=== PATIENT | male | born 1985 | race Caucasian/White ===

== ENCOUNTER 2017-04-08 05:18 | Day surgery (SDC) | payer OTHER ==
[~2017-04-08] VITALS: Ht 172.7 cm; Wt 69.4 kg
--- NOTE | ~2017-04-08 | EKG ---
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: CHRISTY : 1985 Requested By: Gregorio Meraz Order Number: [id number] MD: Jose Enrique Dunlap Measurements Intervals Sultana Rate: 74 P: 30 NM: 127 QRS: 5 QRSD: 89 T: 0 QT: 387 QTc: 430 Interpretive Statements Sinus rhythm LVH by voltage Borderline T abnormalities, inferior leads ST elev, probable normal early repol pattern Baseline wander in lead(s) V1,V3 No previous ECG available for comparison Electronically Signed On 04-08-2017 8:01:21 CDT by Jose Enrique Dunlap [email or web address] <ELECTRONICALLY SIGNED> By: Jose Enrique Dunlap MD, [facility] 04/08/17 0801 [id number] Jose Enrique Dunlap MD, [facility] /EPI
--- NOTE | ~2017-04-08 | O ---
[facility] [place] [address] OPERATIVE REPORT Name: BRITTANY PATEL Room #: 150-1 [facility] M.R.#: [id number] Admission: 04/08/17 Attend Phys: Gregorio Meraz MD, F Discharge: Date of : 89 Report #: [id number] THIS REPORT FOR: //name// CC: Gregorio Alves DATE OF SERVICE: 04/08/2017 PREOPERATIVE DIAGNOSES: Protein calorie malnutrition and sepsis requiring removal of Port-A-Cath. POSTOPERATIVE DIAGNOSES: Protein calorie malnutrition and sepsis requiring removal of Port-A-Cath. OPERATIVE PROCEDURE: Removal of right anterior chest wall Port-A-Cath. SURGEON: Gregorio Meraz M.D. 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 This requires removal on emergency medical basis according to Dr. Alves at [facility]. OPERATIVE PROCEDURE: The patient was brought to the operating room and had satisfactory induction of slight moderate anesthetic care. He had some sedation. Sterile prep and paint with DuraPrep was performed in the right anterior chest wall. 1% plain Xylocaine mixed with 1:1 sodium bicarbonate was utilized for local infiltration. The pocket 4 cm transverse incision was opened. The catheter was controlled and removed from its sheath. The sheath was then approximated and closed with a [id number] 3-0 Vicryl suture. The chamber was then removed, which had been sutured to the pectoralis fascia was then excised. The entire Port-A-Cath was sent for gross inspection only. Copious irrigation was performed, hemostasis was achieved with electrocautery. Annette solution was placed into the pocket, which was down to bare pectoralis muscle. The deep subcutaneous tissue was approximated with running 3-0 Vicryl. The more superficial subcutaneous tissue approximated with running 3-0 Vicryl. Skin margins were approximated with subcuticular 4-0 Monocryl. Estimated blood loss 5 mL. The patient returned to recovery room in stable and satisfactory condition and will be transferred back to [facility]-term acute care facility when stable. By: [id number] Gregorio Meraz MD, FACS /nt
--- NOTE | ~2017-04-08 | H ---
[facility] [place] [address] HISTORY AND PHYSICAL Name: BRITTANY PATEL Room #: 150-1 [facility] M.R.#: [id number] Admission: 04/08/17 Attend Phys: Gregorio Meraz MD, F Discharge: Date of : 89 Report #: [id number] THIS REPORT FOR: //name// CC: Gregorio Alves DATE OF SERVICE: 04/08/2017 DATE OF OPERATION: 04/08/2017. HISTORY OF PRESENT ILLNESS: This 31-year-old male who is a patient at [facility] since he had a history of electrocution on 07/22/2015. He has been unresponsive since that time. Has significant flexor contractions and a vegetative state. He has a diverting colostomy, a gastrostomy and tracheostomy tube and has decubiti of the posterior ischial tuberosities. He has a Port-A-Cath in the right anterior chest wall, which has not been utilized for some time and requires removal in order to not be a continuing source for sepsis. PAST MEDICAL HISTORY: Unable to be obtained. ALLERGIES: None listed. MEDICATIONS: Multiple including vancomycin and Diflucan and suspensions per feeding tube, multiple medications for seizure disorder per the PEG feeding tube. SOCIAL HISTORY: Unobtainable. Parents lives in [place]. FAMILY HISTORY: Not obtainable. See old history and physical. REVIEW OF SYSTEMS: Not obtainable. PHYSICAL EXAMINATION: GENERAL: The patient in vegetative state, resting comfortably in bed. VITAL SIGNS: Stable. He is afebrile. HEENT: Mouth with wide open. Eyes closed, responds only to painful stimuli. CHEST: There is a Port-A-Cath in the right anterior chest wall. Lungs are clear bilaterally. CARDIOVASCULAR: Regular rate and rhythm. ABDOMEN: PEG and colostomy with satisfactory function. NEUROLOGICAL: Marked contractures of all extremities, spasticity is present. DIAGNOSTIC IMPRESSION: Sepsis and protein-calorie malnutrition secondary to [facility] [address] [place] [address] HISTORY AND PHYSICAL Name: BRITTANY PATEL Room #: 150-1 [facility] M.R.#: [id number] Admission: 04/08/17 Attend Phys: Gregorio Meraz MD, F Discharge: Date of : 89 Report #: [id number] severe electrocution injury with need for removal of Port-A-Cath, which is no longer utilized. By: [id number] Gregorio Meraz MD, FACS /nt
--- NOTE | ~2017-04-08 | S ---
[facility] [address] [place] [address] SURGICAL PATH RPT PROCEDURE Name: BRITTANY PATEL Room #: DEP [facility] M.R.#: [id number] Admission: 04/08/17 Date of : 89 Discharge: 04/08/17 Report #: [id number] Path Case #: [id number] PATHOLOGY REPORT DRAFT COLLECTION DATE: 04/08/2017 RECEIVED DATE: 04/08/2017 SPECIMEN(S) RECEIVED: Suzette
[~2017-04-08 05:18] MED LIST: ACETAMINOP160 MG/12 PER TUBE; ACETYLCYST200 MG/1 M INH; BACLOFEN 10MG T10 MG PER TUBE; CALCITONIN-SAL3.7 ML NASAL; COREG25 MG PER TUBE; FERROUS SU300 MG/5 M PER TUBE; FLEXERIL PER TUBE; HEPARIN SO5000 UNIT2 SUBQ; HYDRALAZINE20 MG/M1 IV PUSH; IPRATROPIU0.2 MG/1 M INH; KEPPRA 500 MG500 M1 PER TUBE; LOPRESSOR100 M1 PER TUBE; MAGOX 400400 MG PER TUBE; MICONAZOLE5 GM TOP; MULTIVITAMINS PER TUBE; NORVASC 5 MG TAB5 MG PER TUBE; ONDANSETRON HCL4 M2 PER TUBE; PEPCID20 MG PER TUBE; PHENYTOIN125 MG/52 PER TUBE; PROTEIN SUPPLEMENT PER TUBE; REGLAN 10 MG TA10 MG PER TUBE; ROBITUSSIN100 MG/53 PER TUBE; SEROQUEL 25 MG25 M1 PER TUBE; STOOL SOFTENER100 MG PER TUBE; TIZANIDINE HCL4 MG PER TUBE; TWOCAL HN LIQU237 ML PER TUBE; VALPROIC A500 MG/10 PER TUBE; ZYVOX600 MG/300 IVPB
[2017-04-08 06:35] VITALS: BP 91/52
[2017-04-08] MEDS ORDERED: AMIKACIN (500 MG/2 M IVPB (07:59)
[2017-04-08] MEDS ORDERED: VANCO 1 GR1 GM/250 M IVPB (08:00)
[2017-04-08] MEDS ORDERED: EUCERIN CREME57 GM TOP (08:08)
[2017-04-08] MEDS ORDERED: PERIDEX15 ML MUCOUS MEM (08:09)
== END 2017-04-08 11:29 ==
LOC: OR 05:18 → TBA 05:19 → OR 10:51
DX: Z45.2 Encounter for adjustment and management of vascular access device (principal); E46 Unspecified protein-calorie malnutrition; A41.89 Other specified sepsis; I10 Essential (primary) hypertension; Z93.1 Gastrostomy status; Z93.3 Colostomy status; Z93.0 Tracheostomy status
CPT/HCPCS: 50010; 50101; 50386; 50403; 52287; 54118; 56524; 56526; 62110; 62850; 70005

== ENCOUNTER 2017-04-09 23:17 | Inpatient (IN) | payer OTHER ==
[~2017-04-09] VITALS: Ht 165.1 cm; Wt 65.7 kg
--- NOTE | ~2017-04-09 | HC ---
[facility] [place] [address] CONSULTATION Name: BRITTANY PATEL Room #: 452-P ADM IN M.R.#: [id number] Admission: 04/10/17 Attend Phys: Kyler Tran MD Discharge: Date of : 89 Report #: [id number] THIS REPORT FOR: //name// CC: Kyler LION PCP DATE OF SERVICE: 04/10/2017 REASON FOR CONSULTATION: I was asked to evaluate concerning fever. 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 He has had persistent fevers there. He comes in on vancomycin and amikacin. Complications have included bilateral ischial decubiti. These have improved with wound care there. He has had recurring fevers. Has multidrug resistant organisms identified from his secretions. Remains encephalopathic. He is contractured, has tracheostomy, remains off the ventilator, has a PEG tube, colostomy, indwelling Lake catheter. He had a Port-A-Cath in place and that was removed [address] Gregorio Meraz. There were no intraoperative complications. He was dismissed only to return with higher fever, tachycardia and hypoxia. No other issues identified. He has had recurring Staphylococcus bacteremia. He has had enterobacter and pseudomonas in his respiratory tract along with recurring urinary tract infections. REVIEW OF SYSTEMS: Noted above with no additions. He does have a left IJ catheter in place. ALLERGIES: None known. MEDICATIONS: As noted on his MAR including vancomycin and amikacin. PAST MEDICAL HISTORY, FAMILY HISTORY, AND SOCIAL HISTORY: Unchanged from his history and physical, which was reviewed in detail. PHYSICAL EXAMINATION: VITAL SIGNS: Temperature 101.2, hemodynamically stable. GENERAL: Eyes were open, but he was not responsive. He had tremors with any stimulation. He had upper extremity contractures. His right leg was contractured in flexion and his left lower extremity was contractured in extension. Right chest Port-A-Cath site incision was unremarkable. There was some surrounding ecchymosis. Tracheostomy had a large amount of thick yellowish orange tracheal secretions. Left IJ catheter was unremarkable. LUNGS: Coarse bilaterally with no consolidation. HEART: Regular without murmur. ABDOMEN: PEG site unremarkable, colostomy unremarkable, indwelling Lake [facility] [address] [place] [address] CONSULTATION Name: BRITTANY PATEL Room #: 452-P [facility] IN .R.#: [id number] Admission: 04/10/17 Attend Phys: Kyler Tran MD Discharge: Date of : 89 Report #: [id number] catheter unremarkable. EXTERNAL GENITALIA: Otherwise unremarkable. His pelvic wounds appeared stable. No purulence or surrounding erythema. LABORATORY STUDIES: Sodium 136, potassium 4.2, bicarbonate 29, creatinine 0.6. Hemoglobin 11.1, white count 10.3, platelet count 247,000. Urinalysis, moderate wbc's, many rbc's, few bacteria, yeast. Blood and urine cultures are pending. Stool for C. difficile pending. IMPRESSION: Recurring fever in the setting of anoxic encephalopathy. Question whether some of this may be central in nature. It is noted that his white count is normal. He surely is colonized with multiple resistant organisms. Chest x-ray does show perihilar and basilar infiltrates. How much of this is new is not clear. PLAN: Would recommend continuing IV antibiotic therapy pending cultures of blood, urine and sputum. We will reevaluate following these cultures. <ELECTRONICALLY SIGNED> By: Garry Dawn MD 04/10/17 1857 [id number] Garry Dawn MD /nt
[~2017-04-09 23:17] MED LIST changes: +AMIKACIN (500 MG/2 M IVPB; +EUCERIN CREME57 GM TOP; +PERIDEX15 ML MUCOUS MEM; +VANCO 1 GR1 GM/250 M IVPB
[2017-04-09 23:22] VITALS: BP 129/74
[2017-04-10] VITALS (7 sets, daily range): BP systolic 87–143; BP diastolic 55–87
[2017-04-10 00:40] LABS: URINE BILIRUBIN NEGATIVE (Negative); URINE BLOOD 3+ (Negative); URINE COLOR YELLOW; URINE GLUCOSE-RANDOM* NEGATIVE (Negative); URINE KETONES NEGATIVE (Negative); URINE LEUKOCYTES-REFLEX 3+ (Negative); URINE PROTEIN (DIPSTICK) TRACE (Negative); URINE UROBILINOGEN 0.2 E.U./dl (0.2-1.0)
[2017-04-10 01:00] LABS: CASTS None Seen /LPF (None Seen); SQUAMOUS None Seen /LPF (0-3)
[2017-04-10 01:01] LABS: URINE RBC >20 Many /HPF (0-2); YEAST-REFLEX Present (None Seen)
[2017-04-10 01:02] LABS: AMORPHOUS PHOSPHATES Moderate /LPF (None Seen)
[2017-04-10 02:59] LABS: ABSOLUTE NEUTROPHILS 6.7 thou/uL (1.4-8.2); BASOPHILS 0.4 % (0.0-2.0); EOSINOPHILS 2.6 % (0.0-3.0); HEMATOCRIT 32.3 % (42.0-52.0); HEMOGLOBIN 11.1 gm/dL (14.0-18.0); MCH 28.9 pg (26.0-34.0); MCHC 34.2 g/dL (28.0-37.0); MCV 84.5 fL (80.0-100.0); MONOCYTES 9.2 % (1.0-8.0); PLATELET COUNT 247 thou/uL (150-400); POLYS 64.8 % (36.0-66.0); RBC 3.83 mil/uL (4.50-6.00); WBC 10.3 thou/uL (4.0-11.0)
[2017-04-10 03:02] LABS: MANUAL DIFF NO
[2017-04-10 03:07] LABS: CALCIUM 9.2 mg/dL (8.5-10.1); CREATININE 0.6 mg/dL (0.7-1.3); POTASSIUM 4.2 mmol/L (3.5-5.1)
[2017-04-10 13:50] LABS: CALCIUM 9.4 mg/dL (8.5-10.1); CREATININE 0.6 mg/dL (0.7-1.3); POTASSIUM 4.5 mmol/L (3.5-5.1)
[2017-04-11 03:07] VITALS: BP 116/84
[2017-04-11 06:18] LABS: ABSOLUTE NEUTROPHILS 4.8 thou/uL (1.4-8.2); BASOPHILS 0.4 % (0.0-2.0); EOSINOPHILS 5.2 % (0.0-3.0); HEMATOCRIT 29.5 % (42.0-52.0); LYMPHOCYTES 19.6 % (24.0-44.0); MCH 29.1 pg (26.0-34.0); MCHC 33.9 g/dL (28.0-37.0); MCV 85.7 fL (80.0-100.0); MONOCYTES 9.4 % (1.0-8.0); PLATELET COUNT 200 thou/uL (150-400); POLYS 65.4 % (36.0-66.0); RBC 3.44 mil/uL (4.50-6.00); RDW 15.6 % (10.5-14.5); WBC 7.3 thou/uL (4.0-11.0)
[2017-04-11 06:27] LABS: MANUAL DIFF NO
[2017-04-11 06:41] LABS: ALBUMIN 2.3 g/dL (3.4-5.0); CREATININE 0.5 mg/dL (0.7-1.3); POTASSIUM 3.7 mmol/L (3.5-5.1); TOTAL BILIRUBIN 0.3 mg/dL (<0.1-1.0); TOTAL PROTEIN 7.2 g/dL (6.4-8.2)
[2017-04-11 08:41] VITALS: BP 96/65
[2017-04-11 12:27] VITALS: BP 102/64
[2017-04-11 16:50] VITALS: BP 90/87
[2017-04-11 20:00] VITALS: BP 106/70
[2017-04-12 04:07] VITALS: BP 110/67
[2017-04-12 04:18] LABS: ABSOLUTE NEUTROPHILS 5.8 thou/uL (1.4-8.2); BASOPHILS 0.7 % (0.0-2.0); HEMATOCRIT 31.8 % (42.0-52.0); HEMOGLOBIN 10.8 gm/dL (14.0-18.0); LYMPHOCYTES 21.1 % (24.0-44.0); MCH 29.3 pg (26.0-34.0); MCV 86.3 fL (80.0-100.0); POLYS 65.2 % (36.0-66.0); RBC 3.69 mil/uL (4.50-6.00); RDW 15.8 % (10.5-14.5); WBC 8.9 thou/uL (4.0-11.0)
[2017-04-12 04:27] LABS: PLATELET COUNT 290 thou/uL (150-400)
[2017-04-12 04:28] LABS: CALCIUM 8.8 mg/dL (8.5-10.1); CREATININE 0.5 mg/dL (0.7-1.3); MANUAL DIFF NO; POTASSIUM 4.1 mmol/L (3.5-5.1)
[2017-04-12 04:58] LABS: LARGE PLATELETS RARE
[2017-04-12 07:32] VITALS: BP 93/63
[2017-04-12 11:35] VITALS: BP 102/71
[2017-04-12 16:38] VITALS: BP 112/72
== END 2017-04-12 18:35 | DRG 314 ==
LOC: ER 23:17 → 4W 04-10 03:43 → EROBS 04-10 03:43 → 4W 04-10 04:34
PROVIDERS: Emergency Medicine; Internal Medicine Endocrinology, Diabetes & Metabolism; Nurse Practitioner Family
PROC: B5181ZA Fluoroscopy of Superior Vena Cava using Low Osmolar Contrast, Guidance (ICD-10-PCS; principal; 2017-04-10)
PROC: 02HV33Z Insertion of Infusion Device into Superior Vena Cava, Percutaneous Approach (ICD-10-PCS; principal; 2017-04-10)
DX: T80.219A Unspecified infection due to central venous catheter, initial encounter (principal); A41.1 Sepsis due to other specified staphylococcus; J18.9 Pneumonia, unspecified organism; G93.1 Anoxic brain damage, not elsewhere classified; N39.0 Urinary tract infection, site not specified; J22 Unspecified acute lower respiratory infection; I11.0 Hypertensive heart disease with heart failure; I50.9 Heart failure, unspecified; G40.909 Epilepsy, unspecified, not intractable, without status epilepticus; M62.49 Contracture of muscle, multiple sites; B96.5 Pseudomonas (aeruginosa) (mallei) (pseudomallei) as the cause of diseases classified elsewhere; Z93.3 Colostomy status; Z93.0 Tracheostomy status; Z93.1 Gastrostomy status; Z86.74 Personal history of sudden cardiac arrest; Z79.899 Other long term (current) drug therapy; Y83.8 Other surgical procedures as the cause of abnormal reaction of the patient, or of later complication, without mention of misadventure at the time of the procedure; Y92.89 Other specified places as the place of occurrence of the external cause
CPT/HCPCS: 10045

== ENCOUNTER 2017-06-12 01:02 | Inpatient (IN) | payer OTHER ==
[~2017-06-12] VITALS: Ht 165.1 cm; Wt 70.8 kg
[2017-06-12] VITALS (7 sets, daily range): BP systolic 104–144; BP diastolic 70–100
--- NOTE | ~2017-06-12 | HC ---
[facility] [place] [address] CONSULTATION Name: BRITTANY PATEL Room #: 451-P ADM IN M.R.#: [id number] Admission: 06/12/17 Attend Phys: James Sherwood MD Discharge: Date of : 89 Report #: [id number] THIS REPORT FOR: //name// CC: James Sherwood NO PCP DATE OF SERVICE: 06/12/2017 REASON FOR CONSULTATION: Trach and possible pneumonia. IMPRESSION: 1. Pulmonary infiltrate, possible healthcare-associated pneumonia. 2. Sepsis. 3. Jckwx-jp-vvcczfz respiratory failure. 4. History of seizure disorder. 5. Encephalopathy. 6. Wounds. PLAN: 1. The usual trach care. 2. DVT and ulcer prophylaxis. 3. Continue home meds. 4. Aerosol therapy. 5. Antibiotics per ID. HISTORY OF PRESENT ILLNESS: A 31-year-old male transferred from [facility], was here in March with a Staph epidermidis bacteremia, see albicans in the urine and E. coli and Klebsiella pneumoniae in the sputum. He is now transferred from [place] secondary to hypertension. Was transfused and was given 2 liters of fluid in the Emergency Room and the antibiotics started and ID was consulted. The patient seen on floor. He opened eyes but did not follow for me. PAST SURGICAL HISTORY: Gastrostomy, Lake and tracheostomy. ALLERGIES: Per chart, no known. CURRENT MEDICATIONS: Include vancomycin, Seroquel 25 b.i.d., Keppra 1250 b.i.d., heparin 5000 b.i.d., Pepcid 20 mg daily, Humalog, phenytoin 150 q.8, tizanidine 8 mg q.8, Zosyn 4.5 q.6, baclofen and DuoNeb. PAST MEDICAL HISTORY: Not obtainable. FAMILY HISTORY: Not obtainable. SOCIAL HISTORY: Not obtainable. [facility] [address] [place] [address] CONSULTATION Name: BRITTANY PATEL Room #: 451-P [facility]#: [id number] Admission: 06/12/17 Attend Phys: James Sherwood MD Discharge: Date of : 89 Report #: [id number] REVIEW OF SYSTEMS: Not obtainable; however, per chart in June 2015 injury with cardiac arrest and severe hypoxic brain damage, tracheostomy, encephalopathy, quadriplegia with current contractures, hypertension, autonomic dysreflexia with fluctuating heart rate and blood pressure, seizure disorder, recurrent bacteremia, hypercalcemia due to immobility, bilateral trochanteric wound and groin rash. PHYSICAL EXAMINATION: VITAL SIGNS: Temperature 96.6, pulse 66, respirations 17 and BP 104/70. GENERAL: The patient did open eyes. LUNGS: Coarse bilaterally. Trach in place. HEART: Regular. ABDOMEN: Bowel sounds present. EXTREMITIES: Contractures. RADIOLOGICAL DATA: Chest x-ray showed bilateral infiltrates. KUB did not show any free air. LABORATORY DATA: Lactate 0.7. BUN 20, creatinine 0.6 and potassium 3.3. Alkaline phosphatase 184. Magnesium 15. SGPT 71. Albumin 2.1. White count 7.6, hemoglobin 11.6 and platelets 176. UA showed bacteria 1-9, wbc's 6-15 and leukocyte 3+. We will follow closely with you. By: 2238 Shreya Leos MD /nt
--- NOTE | ~2017-06-12 | HC ---
[facility] [place] [address] CONSULTATION Name: BRITTANY PATEL Room #: 451-P ADM IN M.R.#: [id number] Admission: 06/12/17 Attend Phys: James Sherwood MD Discharge: Date of : 89 Report #: [id number] THIS REPORT FOR: //name// CC: James LION PCP DATE OF SERVICE: 06/12/2017 CONSULTATION: Infectious diseases. The patient is an unfortunate 31-year-old gentleman who is admitted to the hospital from his residential because of hypotension in the documentation available to me. I cannot see what the blood pressure actually was. In the ER, it was measured at 113/74. The patient was admitted to the hospital because of possible sepsis. The patient was last at [facility], April 10 through April 12 of this year. At that time, the patient had coagulase negative staph and multiple blood cultures. This was treated by moving the Port-A-Cath and placing a PICC line. The patient was also noted to have resistant ruben in his sputum and urine and was discharged on vancomycin plus amikacin. He is chronically ill as noted below. It is not clear from the records available how long he continued on the antibiotics. He is on erythromycin chronically, presumably for gastric motility. In this setting, the patient returns to the hospital and infectious disease consultation was requested. The patient suffered an electrocution in 2014. Apparently he had a cardiac arrest , was left with severe anoxic encephalopathy. As a result, he is essentially in an agitative state with his eyes open. He requires chronic ventilator support. He has had a gastrostomy for feeding, colostomy for handling waste and skin care as well as a Lake catheter for urine and now has a PICC line for IV access. The patient in the past has had sepsis, urinary tract infection, severe decubitus ulcers and pneumonia associated with his neurologic condition. He has severe contractures. His eyes are open but he really does not respond to verbal nor aversive stimuli. ALLERGIES: The patient has no drug allergies. MEDICATION RECONCILIATION: Current medication orders include vancomycin, quetiapine, Levetiracetam, heparin, famotidine, insulin, phenytoin, tizanidine, Zosyn, glucagon, glucose, baclofen, magnesium, potassium, fentanyl, acetaminophen, DuoNeb, ondansetron. FAMILY HISTORY: Noncontributory. SOCIAL HISTORY: The patient is totally dependent in a residential since his [address] [address] CONSULTATION Name: BRITTANY PATEL Room #: 451-P [facility]#: [id number] Admission: 06/12/17 Attend Phys: James Sherwood MD Discharge: Date of : 89 Report #: [id number]. No previous history of tobacco, alcohol nor drug use. REVIEW OF SYSTEMS: Unavailable. PHYSICAL EXAMINATION: GENERAL: The patient appears in his usual baseline condition, unresponsive, eyes open, contractured, in no distress. VITAL SIGNS: Show maximum measured temperature 99.6, the minimum blood pressure here at the hospital is 113/74 and in fact he has become somewhat hypertensive at 144/93 on the most recent measurement. SKIN: Significant for no wounds that I found. I do not fully address the patient or examine on all surfaces because of his contractures and lack of help. I did note that the right hip had a scar deep decubitus, which is now completely reepithelialized. ENT: Shows contracted changes. The mouth is open. NECK: Stiff with contracture, T-tube connected to the tracheotomy, appears unremarkable. CARDIOVASCULAR: Heart sounds normal. CHEST: Breath sounds are diminished, but clear. ABDOMEN: Belly is soft, not tender. Gastrostomy tube unremarkable. Colostomy unremarkable. EXTREMITIES: Contractures, particularly severe in the elbows, wrists, right hip and knee. The nails are long and somewhat unkempt. LABORATORY DATA: The white count is 7.6, hemoglobin 11.6, hematocrit 34%. Electrolytes are normal. BUN 20, creatinine 0.6. Glucose is elevated at 215 which is unusual. Liver function tests showed elevation of alkaline phosphatase of 184, SGPT elevated at 71. SGOT is normal. Albumin is low at 2.1, CPK is normal. BNP is normal. Magnesium is 1.5. Blood cultures x 2 are negative at 20 hours. Urine culture is negative. Chest x-ray shows chronic infiltrates. In summary, the patient was chronically very ill and debilitated because of anoxic encephalopathy, quadriplegia and severe contractures. He apparently had hypotension at the residential, which was corrected before he even got to the emergency room here at [facility]. At this point, it is reasonable to cover the patient for the possibility of sepsis given his debilitated condition and his past history based on previous cultures. I will use vancomycin plus amikacin. We can use Zosyn in addition for additional anaerobic coverage. If the cultures all stay negative and the patient continues in his baseline condition, I would hope we could stop the antibiotics within a day or two. The patient will need an air bed to try to prevent decubitus ulcer information. I would like to do a swab of the nares as well as sputum culture. We can have wound care nurses do a more thorough survey of the skin and measure and photograph if any abnormalities. [facility] [address] [place] [address] CONSULTATION Name: BRITTANY PATEL Room #: 451-P ADM IN M.R.#: [id number] Admission: 06/12/17 Attend Phys: James Sherwood MD Discharge: Date of : 89 Report #: [id number] I appreciate the opportunity of input in the care of this complex patient. I will be happy to follow the patient through the weekend until Dr. Dawn returns on Wednesday. Thank you for this consultation. By: [id number] Luis Martinez MD /nt
[2017-06-12 02:25] LABS: URINE BILIRUBIN NEGATIVE (Negative); URINE BLOOD 2+ (Negative); URINE COLOR YELLOW; URINE GLUCOSE-RANDOM* NEGATIVE (Negative); URINE KETONES NEGATIVE (Negative); URINE LEUKOCYTES-REFLEX 3+ (Negative); URINE PROTEIN (DIPSTICK) TRACE (Negative); URINE UROBILINOGEN 0.2 E.U./dl (0.2-1.0)
[2017-06-12 02:31] LABS: ABSOLUTE NEUTROPHILS 4.4 thou/uL (1.4-8.2); BASOPHILS 0.5 % (0.0-2.0); EOSINOPHILS 1.7 % (0.0-3.0); HEMATOCRIT 34.4 % (42.0-52.0); HEMOGLOBIN 11.6 gm/dL (14.0-18.0); LYMPHOCYTES 29.6 % (24.0-44.0); MCH 30.1 pg (26.0-34.0); MCHC 33.7 g/dL (28.0-37.0); MCV 89.5 fL (80.0-100.0); MONOCYTES 9.9 % (1.0-8.0); PLATELET COUNT 176 thou/uL (150-400); POLYS 58.3 % (36.0-66.0); RBC 3.84 mil/uL (4.50-6.00); RDW 13.3 % (10.5-14.5); WBC 7.6 thou/uL (4.0-11.0)
[2017-06-12 02:32] LABS: MANUAL DIFF NO
[2017-06-12 02:37] LABS: APTT 30.6 Seconds (24.5-32.8); INR 1.2; PROTIME 12.1 Seconds (9.3-11.4)
[2017-06-12 02:38] LABS: ANION GAP 5 mmol/L (7-16); BUN 20 mg/dL (7-18); CALCIUM 8.4 mg/dL (8.5-10.1); CHLORIDE 108 mmol/L (98-107); CO2 31 mmol/L (21-32); CREATININE 0.6 mg/dL (0.7-1.3); GLUCOSE 215 mg/dL (74-106); POTASSIUM 3.3 mmol/L (3.5-5.1); SODIUM 144 mmol/L (136-145)
[2017-06-12 02:43] LABS: SQUAMOUS None Seen /LPF (0-3); SSA (PROTEIN CONFIRMATORY) TRACE (APPROX. 5) mg/dL (Negative)
[2017-06-12 02:44] LABS: HYALINE CASTS 0-3 Few /LPF (None Seen); URINE RBC 3-10 Few /HPF (0-2); URINE WBC-REFLEX 6-15 Few /HPF (0-5)
[2017-06-12 02:45] LABS: AMORPHOUS PHOSPHATES Many /LPF (None Seen); CRYSTALS None Seen /LPF (None Seen)
[2017-06-12 02:52] LABS: LARGE PLATELETS OCCASIONAL
[2017-06-12 02:55] LABS: ALBUMIN 2.1 g/dL (3.4-5.0); ALKALINE PHOSPHATASE 184 U/L (46-116); CK-MB MASS < 0.5 ng/mL (<0.5-3.6); MAGNESIUM 1.5 mg/dL (1.8-2.4); NT-PRO BRAIN NAT PEPTIDE 166 pg/mL (<300); SGOT 35 U/L (15-37); SGPT 71 U/L (30-65); TOTAL BILIRUBIN 0.3 mg/dL (<0.1-1.0); TOTAL PROTEIN 6.7 g/dL (6.4-8.2); TROPONIN-I < 0.04 ng/mL (<0.04-0.07)
[2017-06-12] MEDS ORDERED: ERYPED PER TUBE (04:17)
[2017-06-12] MEDS ORDERED: DILANTIN100 MG PER TUBE (04:20)
[2017-06-12] MEDS ORDERED: NYAMYC15 GM TOP (04:21)
[2017-06-12] MEDS ORDERED: EUCERIN CREME57 GM TP (04:24)
[2017-06-13 05:43] VITALS: BP 149/89
[2017-06-13 06:54] LABS: ABSOLUTE NEUTROPHILS 3.5 thou/uL (1.4-8.2); BASOPHILS 0.5 % (0.0-2.0); EOSINOPHILS 3.8 % (0.0-3.0); HEMATOCRIT 32.7 % (42.0-52.0); HEMOGLOBIN 11.3 gm/dL (14.0-18.0); LYMPHOCYTES 37.1 % (24.0-44.0); MCH 30.5 pg (26.0-34.0); MCHC 34.6 g/dL (28.0-37.0); MCV 88.4 fL (80.0-100.0); MONOCYTES 8.6 % (1.0-8.0); PLATELET COUNT 178 thou/uL (150-400); RDW 13.2 % (10.5-14.5); WBC 7.1 thou/uL (4.0-11.0)
[2017-06-13 06:55] LABS: MANUAL DIFF NO
[2017-06-13 06:58] LABS: ALBUMIN 2.4 g/dL (3.4-5.0); CALCIUM 8.5 mg/dL (8.5-10.1); CREATININE 0.6 mg/dL (0.7-1.3); TOTAL BILIRUBIN 0.4 mg/dL (<0.1-1.0)
[2017-06-13 07:34] VITALS: BP 151/96
[2017-06-13 11:11] VITALS: BP 141/96
[2017-06-13 16:40] VITALS: BP 114/87
[2017-06-13 19:24] VITALS: BP 117/79
[2017-06-14 03:53] VITALS: BP 150/94
[2017-06-14 08:12] VITALS: BP 105/59
[2017-06-14 12:03] VITALS: BP 163/84
[2017-06-14] MEDS ORDERED: AUGMENTIN 875875 MG PO (13:48)
[2017-06-14 13:59] LABS: MAGNESIUM 1.9 mg/dL (1.8-2.4); POTASSIUM 3.8 mmol/L (3.5-5.1)
[2017-06-14 15:21] VITALS: BP 115/64
== END 2017-06-14 20:00 | DRG 871 ==
LOC: ER 01:02 → 4W 02:59 → EROBS 02:59 → 4W 04:28
PROVIDERS: Emergency Medicine; Hospitalist; Internal Medicine Pulmonary Disease
PROC: 02HV33Z Insertion of Infusion Device into Superior Vena Cava, Percutaneous Approach (ICD-10-PCS; principal; 2017-06-12)
DX: A41.9 Sepsis, unspecified organism (principal); J96.21 Acute and chronic respiratory failure with hypoxia; J18.9 Pneumonia, unspecified organism; E43 Unspecified severe protein-calorie malnutrition; G82.50 Quadriplegia, unspecified; G93.1 Anoxic brain damage, not elsewhere classified; N39.0 Urinary tract infection, site not specified; I95.9 Hypotension, unspecified; Y95 Nosocomial condition; E16.2 Hypoglycemia, unspecified; I10 Essential (primary) hypertension; E83.42 Hypomagnesemia; E87.6 Hypokalemia; L89.90 Pressure ulcer of unspecified site, unspecified stage; G40.909 Epilepsy, unspecified, not intractable, without status epilepticus; Z79.899 Other long term (current) drug therapy; Z68.26 Body mass index [BMI] 26.0-26.9, adult; Z93.3 Colostomy status; Z93.0 Tracheostomy status
CPT/HCPCS: 10045

== ENCOUNTER → 2017-07-09 | Outpatient (CLI) | payer OTHER ==
[~2017-07-09] MED LIST changes: +AMIKACIN (500 MG/2 M IV; +AUGMENTIN 875875 MG PO; +CATAPRES0.2 MG TRANSDERM; +DILANTIN100 MG PER TUBE; +ERYPED PER TUBE; +EUCERIN CREME57 GM TP; +LOPRESSOR25 PO; +LOPRESSOR50 IV; +MICONAZOLE NITR10 GM TOP; +NYAMYC15 GM TOP; +PROTONIX 440 MG/VIA1 IV; +REGLAN 10 MG TA10 MG IV
[2017-07-09 07:39] VITALS: BP 144/92
== END | disposition home or self-care (01) ==
LOC: SPEC 07:39
DX: K94.23 Gastrostomy malfunction (principal); K21.9 Gastro-esophageal reflux disease without esophagitis; I10 Essential (primary) hypertension; Z79.899 Other long term (current) drug therapy; Z98.890 Other specified postprocedural states